=== PATIENT | female | born 1980 | race Caucasian/White ===

== ENCOUNTER 2023-03-03 22:51 | Emergency (ER) | payer OTHER ==
[~2023-03-03] VITALS: Ht 165.1 cm; Wt 66.4 kg
[2023-03-03 23:08] VITALS: BP 132/76; PULSE 59; TEMP 98; O2SAT 98
[2023-03-04] MEDS ORDERED: CYCL-1 PO (01:20)
[2023-03-04] MEDS ORDERED: ketorolac trometh inj. 60 MG/2 ML VIAL IM ONE (01:20)
[2023-03-04 01:35] VITALS: RESP 18
== END 2023-03-04 01:37 | disposition home or self-care (01) ==
LOC: ER 22:52
DX: S19.9XXA Unspecified injury of neck, initial encounter (principal); S09.90XA Unspecified injury of head, initial encounter; M54.2 Cervicalgia; Z88.2 Allergy status to sulfonamides; Z88.8 Allergy status to other drugs, medicaments and biological substances; Z79.899 Other long term (current) drug therapy; V89.2XXA Person injured in unspecified motor-vehicle accident, traffic, initial encounter; Y93.89 Activity, other specified; Y92.89 Other specified places as the place of occurrence of the external cause; Y99.8 Other external cause status
CPT/HCPCS: 72040; 72070; 96372; 99284; J1885